=== PATIENT | female | born 1975 | race Caucasian/White ===

== ENCOUNTER 2018-05-19 05:47 | Day surgery (SDC) | payer BC ==
[~2018-05-19] VITALS: Ht 157.5 cm; Wt 75.2 kg
[~2018-05-19 05:47] MED LIST: FETZIMA80 MG PO; LAMICTAL150 M1 PO; LEVAQUIN750 MG PO; MEDROL DOSEPAK4 MG PO; NAPROXEN500 MG PO; PROAIR HFA8.5 GM IH; VENTOLIN HFA18 GM IH
[2018-05-19 06:01] VITALS: BP 137/79
[2018-05-19 12:33] VITALS: BP 122/62
[2018-05-19 16:03] VITALS: BP 131/72
[2018-05-19 20:19] VITALS: BP 142/79
[2018-05-20 00:09] VITALS: BP 115/56
[2018-05-20 03:46] VITALS: BP 97/55
[2018-05-20 06:59] LABS: BASOPHIL (%) 0.2 % (0-1); EOSINOPHIL (%) 0.1 % (0-5); HEMATOCRIT 37.2 % (36.0-46.0); HEMOGLOBIN 12.1 G/DL (11.9-15.5); IMMATURE GRANULOCYTE (%) 0.3 % (0.0-0.7); LYMPHOCYTE (%) 24.6 % (15-42); LYMPHOCYTE COUNT 3.1 K/uL (1.0-2.8); MCH 29.6 PG (29.0-34.0); MCHC 32.5 G/DL (30.0-36.0); MONOCYTE (%) 7.6 % (3-12); NEUTROPHIL (%) 67.2 % (45-76); NEUTROPHIL COUNT 8.5 K/uL (1.8-6.4); PLATELET COUNT 312 K/uL (156-360); RBC DIS.WIDTH-CV 12.5 % (11.8-14.6); RBC DIS.WIDTH-SD 41.1 % (39-53); RED BLOOD COUNT 4.09 M/uL (3.80-5.20); WHITE BLOOD COUNT 12.7 K/uL (4.1-10.2)
[2018-05-20 07:26] LABS: CHLORIDE 108 MEQ/L (99-109); CREATININE 0.7 MG/DL (0.6-1.3); GFR ESTIMATE (CALCULATED) > 59 mL/min/; GLUCOSE 107 mg/dL (70-99); POTASSIUM 4.2 MEQ/L (3.7-5.4); SODIUM 142 MEQ/L (136-147); UREA NITROGEN (BUN) 6 mg/dL (9-23)
[2018-05-20 07:32] VITALS: BP 132/79
== END 2018-05-20 10:00 | disposition home or self-care (01) ==
LOC: SDC 05:47 → 2EAST 10:35 → 2SOUTH 10:35 → ENRESERV 10:43 → SDC 11:15 → ENRESERV 12:17 → SDC 12:23 → 2EAST 12:43 → SDC 14:42 → 2EAST 05-20 10:00
PROVIDERS: Obstetrics & Gynecology Gynecology
DX: N80.0 Endometriosis of uterus (principal); N81.4 Uterovaginal prolapse, unspecified; N92.0 Excessive and frequent menstruation with regular cycle; N87.9 Dysplasia of cervix uteri, unspecified; N94.6 Dysmenorrhea, unspecified; Z87.891 Personal history of nicotine dependence
CPT/HCPCS: 80048; 85025; 87086; 88307; 88342 TC; G0378; J0690; J1100; J1170; J1644; J1885; J2001; J2250; J2405; J2710; J3010; J3475; J7120; J7643; Q0175